=== PATIENT | male | born 1960 | race African-American/Black ===

== ENCOUNTER 2019-04-09 11:02 | Outpatient (CLI) | payer OTHER ==
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
== END 2019-04-09 11:03 | disposition home or self-care (01) ==
LOC: BICRAD 11:02
PROVIDERS: ATTEND Internal Medicine
DX: Z02.71 Encounter for disability determination (principal)

== ENCOUNTER 2019-09-26 15:00 | Emergency (ER) | payer OTHER ==
[2019-09-26] MEDS ORDERED: Adacel (T-DAP) 0.5 ML SYRINGE ONE (15:11)
[2019-09-26] MEDS ORDERED: Ketorolac Tromethamine 30 MG/ML VIAL ONE (15:30)
[2019-09-26] MEDS ORDERED: Morphine 4 MG/ML VIAL ONE (15:30)
[2019-09-26 15:34] LABS: #Lymphocytes 1.5 thou/uL (1.20-3.40); #Monocytes 0.8 thou/uL (0.11-0.59); #Neutrophils 3.2 thou/uL (1.40-6.50); %Basophils 0.2 % (0.0-1.0); %Eosinophils 0.5 % (0.0-10.0); %Lymphocytes 27.1 % (21.0-51.0); %Monocytes 14.5 % (0.0-10.0); %Neutrophils 57.7 % (42.0-75.0); Hemoglobin 14.3 g/dL (14.0-18.0); Mean Corpuscular HGB CONC 33.6 g/dL (32.0-36.0); Mean Corpuscular Hemoglobin 31.8 pg (27.0-31.0); Mean Corpuscular Volume 94.4 fL (78.0-98.0); Mean Platelet Volume 7.6 fL (7.4-10.4); Platelet Count 180 thou/uL (130-400); RBC Distribution Width 12.4 % (11.5-14.5); Red Blood Cell (RBC) Count 4.52 mill/uL (4.70-6.10); White Blood Cell (WBC) Count 5.6 thou/uL (4.8-10.8)
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
[2019-09-26 15:48] LABS: ALT (SGPT) 37 U/L (8-55); AST (SGOT) 42 U/L (5-34); Albumin 4.3 g/dL (3.5-5.0); Alkaline Phosphatase 80 U/L (40-110); Anion Gap 13 mmol/L (10-20); BUN (Urea Nitrogen) 15 mg/dL (8.4-25.7); Bilirubin, Total 0.4 mg/dL (0.2-1.2); Calc. Creatinine Clearance 0 mL/min (70-130); Calcium 9.2 mg/dL (7.8-10.44); Carbon Dioxide 23 mmol/L (22-29); Chloride 107 mmol/L (98-107); Estimated GFR-MDRD 76; Glucose 97 mg/dL (70-105); Potassium 3.6 mmol/L (3.5-5.1); Protein, Total 7.3 g/dL (6.0-8.3); Sodium 139 mmol/L (136-145)
== END 2019-09-26 18:03 | disposition left against medical advice (07) ==
LOC: ERS 15:00
DX: T21.01XA Burn of unspecified degree of chest wall, initial encounter (principal); T20.07XA Burn of unspecified degree of neck, initial encounter; T31.0 Burns involving less than 10% of body surface; I10 Essential (primary) hypertension; F41.9 Anxiety disorder, unspecified; F32.9 Major depressive disorder, single episode, unspecified; F17.210 Nicotine dependence, cigarettes, uncomplicated; X14.1XXA Other contact with hot air and other hot gases, initial encounter
CPT/HCPCS: 71045; 80053; 85025; 90471; 90715; 96361; 96374; 96375; G0390; J1885; J2270